=== PATIENT | male | born 1990 | race Caucasian/White ===

== ENCOUNTER 2018-10-11 07:58 | Emergency (ER) | payer OTHER ==
[~2018-10-11] VITALS: Ht 188 cm; Wt 108.9 kg
== END 2018-10-11 09:35 | disposition home or self-care (01) ==
LOC: ER 07:58
DX: B34.9 Viral infection, unspecified (principal)

== ENCOUNTER 2025-05-10 14:09 | Emergency (ER) | payer OTHER ==
[~2025-05-10] VITALS: Ht 188 cm; Wt 117.9 kg
[2025-05-10] MEDS ORDERED: ACETAMINOPHEN 325 MG TABLET PO ONE (16:45)
[2025-05-10] MEDS ORDERED: ACETAMINOPHEN 500 MG GEL..CAP PO ONE (18:54)
[2025-05-10 19:20] LABS: BASO % 0.8 % (0.1-1.2); EOS # 0.12 (0.04-0.54); EOS % 2.0 % (0.7-7.0); LYMPH # 1.77 (1.18-3.74); LYMPH % 29.4 % (19.3-53.1); MEAN PLATELET VOLUME 12.30 fl (9.4-12.4); MONO # 0.55 (0.24-0.82); MONO % 9.1 % (4.7-12.5); NEUT # 3.52 (1.56-6.13); NEUT % 58.5 % (34.0-71.1); RED CELL DISTRIBUTION WIDTH 12.3 % (11.6-14.4)
[2025-05-10 19:44] VITALS: BP 149/91; O2SAT 98
[2025-05-10 20:09] LABS: ALT/SGPT 43.0 U/L (12-78); AST/SGOT 17.0 U/L (15-37); BILIRUBIN TOTAL 0.63 mg/dL (0.3-1.2); BUN CREA RATIO 18.0 (7.0-25.0); CREATININE SERUM 1.23 mg/dL (0.70-1.30); GFR 66.58; GLOBULINA 4.1 G/DL (2.4-3.5); GLUCOSE FASTING 98.0 mg/dL (65-100); OSMOLALITY SERUM 285.0 MOSM/KG (275-295)
== END 2025-05-10 21:35 | disposition home or self-care (01) ==
LOC: ER 14:09
PROVIDERS: General Practice
DX: J32.9 Chronic sinusitis, unspecified (principal); R51.9 Headache, unspecified